=== PATIENT | male | born 1975 | race Caucasian/White ===

== ENCOUNTER → 2020-06-17 | Outpatient (CLI) | payer OTHER | LOC: EXRD 09:40 | DX: M25.541 Pain in joints of right hand (principal); M25.542 Pain in joints of left hand; E83.119 Hemochromatosis, unspecified | CPT/HCPCS: 73130 ==

== ENCOUNTER → 2020-07-26 | Outpatient (CLI) | payer OTHER ==
[2020-07-26 08:39] LABS: HEMOGLOBIN 15.4 gm/dl (14.0-17.5); RED BLOOD COUNT 4.77 M/UL (4.20-5.50); WHITE BLOOD COUNT 5.4 K/UL (4.5-11.0)
[2020-07-26 08:58] LABS: BUN/CREATININE RATIO 18 (0-10)
== END ==
LOC: US 08:07 → ECHO 10:00
PROVIDERS: Internal Medicine
DX: E83.110 Hereditary hemochromatosis (principal); Z13.1 Encounter for screening for diabetes mellitus; R94.5 Abnormal results of liver function studies; E55.9 Vitamin D deficiency, unspecified; E78.5 Hyperlipidemia, unspecified; Z79.899 Other long term (current) drug therapy
CPT/HCPCS: ECHO; 36415; 76700; 80053; 80061; 83036; 84439; 84443; 85025; 93306; J3370

== ENCOUNTER → 2021-10-28 | Outpatient (CLI) | payer OTHER | LOC: EXRD 08:54 | DX: E83.110 Hereditary hemochromatosis (principal) | CPT/HCPCS: 76700 ==